=== PATIENT | male | born 1955 | race Caucasian/White ===

== ENCOUNTER 2024-05-13 10:00 | Outpatient (RCR) | payer BC, SELFPAY | END 2024-05-13 11:12 | disposition home or self-care (01) | LOC: HO.PTCHIC 10:00 | PROVIDERS: PCP Family Medicine; Visit Provider Internal Medicine | DX: M75.01 Adhesive capsulitis of right shoulder (principal) | CPT/HCPCS: 97110; 97140; 97161 ==